=== PATIENT | male | born 2000 | race African-American/Black ===

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

== ENCOUNTER 2020-02-13 20:34 | Emergency (ER) | payer OTHER, SELFPAY ==
[2020-02-13] MEDS ORDERED: Ketorolac Tromethamine 30 MG/ML VIAL ONE (21:15)
[2020-02-13] MEDS ORDERED: Acetaminophen 500 MG TAB ONE (21:15)
[2020-02-13] MEDS ORDERED: Dexamethasone 20 MG/5 ML VIAL ONE (21:15)
== END 2020-02-13 21:36 | disposition home or self-care (01) ==
LOC: NAV ERS 20:34
DX: M79.10 Myalgia, unspecified site (principal); M79.601 Pain in right arm; M79.602 Pain in left arm; X50.1XXA Overexertion from prolonged static or awkward postures, initial encounter
CPT/HCPCS: 96372; 99283; J1100; J1885